=== PATIENT | male | born 1965 | race African-American/Black ===

== ENCOUNTER 2017-04-19 10:00 | Inpatient (IN) | payer OTHER ==
[~2017-04-19] VITALS: Ht 172.7 cm; Wt 59.0 kg
--- NOTE | ~2017-04-19 | PN ---
Unit #: [id number] #: [id number] Patient: SERVANDO SCHAFFER [id number] [facility] [address] [place] [address] [id number] I MR#: [id number] NAME: SERVANDO SCHAFFER ROOM: [facility] Age: 52 Sex: M Admission Date: 04/19/2017 : 1965 Attending Physician: Cleveland Currie M.D. Admitting Physician: Cleveland Currie M.D. Primary Care Physician: Primary Care Physician Selena CABA PROGRESS NOTES DATE 04/20/2017 DISCUSSION The patient complains of poor sleep. I will increase his melatonin to 6 mg at h.s. He is today expressing interest in possible initiation of Depo Abilify. I will ask for initiation of Aristada 441 mg monthly. Dictated by... Cleveland Currie M.D. CB/declan TD: 04/20/2017 15:21 JOB #: [id number] GER[facility] PROGRESS NOTES Page 1 of 1 X Cleveland Currie MD PROGRESS NOTE
--- NOTE | ~2017-04-19 | CO ---
Unit #: [id number] #: [id number] Patient: SERVANDO SCHAFFER [id number] [facility] [address] [place] [address] [id number] I MR#: [id number] NAME: SERVANDO SCHAFFER ROOM: [facility] Age: 52 Sex: M Admission Date: 04/19/2017 : 1965 Attending Physician: Cleveland Currie M.D. Consultation Date: 04/24/2017 CONSULTATION REPORT ORDERING PROVIDER Dr. Currie. REASON FOR FOLLOWUP The patient's lab results. SUBJECTIVE This morning Monika on called with patient lab results. Amylase and lipase were within normal limits; however, his AST and ALT were noted to be more than three times of normal value. No hepatitis panel had never been drawn. The patient is currently stable and vital signs are within normal limits. The patient is going to be discharged today per the patient. I do not see any reason to immediately send him out of the hospital. However, nursing was instructed to let him know to follow up with his PCP as soon as possible and if not discharged, they were instructed to let the on-call medical provider know, so that further workup could be done if necessary. Nursing was also instructed to call with any change in status of the patient. Dictated by... Dena Bocanegra/nita TD: 04/24/2017 08:02 JOB #: [id number] CONSULTATION REPORT Page 1 of 1 X ALIDA MONSALVE APRN X CONSULTATION REPORT
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
--- NOTE | ~2017-04-19 | PA ---
Unit #: [id number] #: [id number] Patient: SERVANDO SCHAFFER [id number] [facility] [address] [place] [address] [id number] I MR#: [id number] NAME: SERVANDO SCHAFFER ROOM: [facility] Age: 52 Sex: M Admission Date: 04/19/2017 : 1965 Date of Assessment: 04/19/2017 Attending Physician: Cleveland Currie M.D. Admitting Physician: Cleveland Currie M.D. Primary Care Physician: Primary Care Physician No PSYCHIATRIC ASSESSMENT IDENTIFYING INFORMATION The patient is a 52-year-old male brought to this facility by [employer] after he had attempted to jump from the eleventh floor window. CHIEF COMPLAINT "The voices is telling to jump." INFORMANT Patient, reliability is good. HISTORY OF PRESENT ILLNESS The patient is a 53-year-old male admitted after he had been brought to this facility by police. The patient had reportedly responded to command hallucinations telling him to jump from an 11-floor building in his apartment building. Police were summoned to the patient's home, and he was brought here. The patient reports the patient was last hospitalized at this facility in August of this year. He has apparently been off medications for some time per his report. He was last discharged from this facility in August of this year, but had apparently never filled the medications thereafter. For more complete history of present illness, please refer to previously dictated notes. PAST PSYCHIATRIC HISTORY Reviewed, no changes. PAST MEDICAL HISTORY Reviewed, no changes. MEDICATIONS 1. Lisinopril. 2. Abilify. 3. Melatonin. 4. Mirtazapine. 5. Carafate. 6. Gabapentin. 7. Zofran. 8. Hydrocodone. 9. BuSpar. ALLERGIES Penicillin, Dilaudid. Unit #: [id number] #: [id number] Patient: SERVANDO SCHAFFER FAMILY HISTORY Reviewed, no changes. SOCIAL HISTORY Reviewed, no changes. MENTAL STATUS EXAMINATION Examination at this time reveals the patient to be a thin, disheveled male appearing his stated age. He is in no apparent physical distress at the time of examination. He is awake, alert, and oriented in all spheres. His mood is dysphoric, his affect blunted. Speech is generally well-coherent. There are no gross deficits in memory or cognition noted. Intelligence is judged to be in the average range based on fund of knowledge. The patient is cooperative throughout the interview. He is currently endorsing positive suicidal ideation, command auditory hallucinations. His judgment and insight appear to be significantly impaired. ASSETS AND LIABILITIES The patient's assets are to be assessed. Liabilities: Poor compliance with treatment. Multiple health issues. DIAGNOSTIC IMPRESSION 1. Schizoaffective disorder. 2. Chronic obstructive pulmonary disease. 3. Diabetes mellitus. TREATMENT PLAN The patient remains hospitalized for safety and stabilization. We will restart all previously prescribed medications, and the importance of consistent compliance with these medications is discussed with the patient. The patient will participate in appropriate order of milieu activities. ESTIMATED LENGTH OF STAY 5 to 7 days. Dictated by... Cleveland Currie M.D. TIA/jose angel TD: 04/19/2017 14:02 JOB #: [id number] PSYCHIATRIC ASSESSMENT Page 1 of 1 X Cleveland Currie MD X PSYCHIATRIC ASSESSMENT
--- NOTE | ~2017-04-19 | PN ---
Unit #: [id number] #: [id number] Patient: SERVANDO SCHAFFER [id number] [facility] [address] [place] [address] [id number] I MR#: [id number] NAME: SERVANDO SCHAFFER ROOM: [facility] Age: 52 Sex: M Admission Date: 04/19/2017 : 1965 Attending Physician: Cleveland Currie M.D. Admitting Physician: Cleveland Currie M.D. Primary Care Physician: Primary Care Physician No [facility] PROGRESS NOTES DATE 04/23/2017 DISCUSSION The patient seems to be sustaining progress. We are probably looking at a.m. discharge and it is my hope that he will be able to receive his Aristada injection on that date. Dictated by... Cleveland Currie M.D. CB/khai TD: 04/24/2017 00:40 JOB #: [id number] [facility] PROGRESS NOTES Page 1 of 1 X Cleveland Currie MD X PROGRESS NOTE
--- NOTE | ~2017-04-19 | PN ---
Unit #: [id number] #: [id number] Patient: SERVANDO SCHAFFER [id number] [facility] [address] [place] [address] [id number] I MR#: [id number] NAME: SERVANDO SCHAFFER ROOM: [facility] Age: 52 Sex: M Admission Date: 04/19/2017 : 1965 Attending Physician: Cleveland Currie M.D. Admitting Physician: Cleveland Currie M.D. Primary Care Physician: Primary Care Physician Selena CABA PROGRESS NOTES DATE 04/21/2017 DISCUSSION The patient offers no new complaints today. We have learned that he will not be able to get his Aristada shot until the time of discharge, so we will continue oral Aristada. Otherwise, the patient complains of poor sleep but otherwise offers no new complaints. Dictated by... Cleveland Currie M.D. TIA/declan TD: 04/21/2017 15:43 JOB #: [id number] GER[facility] PROGRESS NOTES Page 1 of 1 X Cleveland Currie MD PROGRESS NOTE
--- NOTE | ~2017-04-19 | PN ---
Unit #: [id number] #: [id number] Patient: SERVANDO SCHAFFER [id number] [facility] [address] [place] [address] [id number] I MR#: [id number] NAME: SERVANDO SCHAFFER ROOM: [facility] Age: 52 Sex: M Admission Date: 04/19/2017 : 1965 Attending Physician: Cleveland Currie M.D. Admitting Physician: Cleveland Currie M.D. Primary Care Physician: Primary Care Physician Selena CABA PROGRESS NOTES DATE 04/22/2017 DISCUSSION The patient seems to be responding well to reinitiation of prescribed medications, as it will be our hope to provide the patient with a dose of Aristada Depot medication shortly prior to discharge, and given his history of poor compliance. Dictated by... Cleveland Currie M.D. CB/jose angel TD: 04/22/2017 12:57 JOB #: [id number] GERTRUDIS MUNOZ NOTES Page 1 of 1 X Cleveland Currie MD PROGRESS NOTE
--- NOTE | ~2017-04-19 | DS ---
Unit #: [id number] #: [id number] Patient: SERVANDO SCHAFFER [id number] [facility] [address] [place] [address] [id number] I MR#: [id number] NAME: SERVANDO SCHAFFER ROOM: [facility] Age: 52 Sex: M Admission Date: 04/19/2017 : 1965 Discharge Date: 04/24/2017 Attending Physician: Cleveland Currie M.D. Primary Care Physician: Primary Care Physician No DISCHARGE SUMMARY REASON FOR ADMISSION The patient is a 52-year-old male with a history of schizoaffective disorder admitted with recurrent auditory hallucinations and depressed mood. HOSPITAL COURSE The patient was admitted to the [address] [place] [address] Unit and placed on suicide precautions. He was restarted on previously prescribed medications including Zestril, Abilify, Remeron, Carafate, Neurontin, Zofran, Vicodin, BuSpar, NovoLog, and Levemir. Because of the patient's issues with compliance, a trial of Aristada 441 mg daily was initiated at the time of discharge. The patient was in brighter sprits and denied suicidal ideation when seen by this physician on 04/18/2017. He requested discharge, and it was so ordered. FINAL DIAGNOSES 1. Schizoaffective disorder. 2. Chronic pain. 3. Hypertension. 4. Gastroesophageal reflux disease. 5. Diabetes mellitus. DISPOSITION ON DISCHARGE The patient was discharged on the following medications: 1. Zestril 5 mg once daily for hypertension. 2. Aristada 441 mg monthly, last dose given 04/16/2017 for psychosis. 3. Remeron 30 mg at bedtime for depression. 4. Carafate 1 gram 3 times daily with meals for gastritis. 5. Neurontin 100 mg twice daily for anxiety. 6. Zofran 4 mg q. 4 hours p.r.n. nausea and vomiting. 7. Lortab 5/325, 1 tablet q. 6 hours p.r.n. pain. 8. BuSpar 7.5 mg daily for anxiety. 9. Melatonin 6 mg at h.s. p.r.n. insomnia. 10. Levemir 25 units at bedtime for diabetic management. 11. Sliding scale NovoLog for diabetic management. DIET AND ACTIVITY No dietary or physical restrictions placed on the patient at the time of discharge. FOLLOWUP Followup will take place through the auspices of [facility]. Unit #: [id number] #: [id number] Patient: SERVANDO SCHAFFER PROGNOSIS Considered fair. Dictated by... Cleveland Currie M.D. CB/jose angel TD: 04/26/2017 09:13 JOB #: [id number] DISCHARGE SUMMARY Page 1 of 1 X Cleveland Currie MD X DISCHARGE SUMMARY
--- NOTE | ~2017-04-19 | CO ---
Unit #: [id number] #: [id number] Patient: SERVANDO SCHAFFER [id number] [facility] [address] [place] [address] [id number] I MR#: [id number] NAME: SERVANDO SCHAFFER ROOM: [facility] Age: 52 Sex: M Admission Date: 04/19/2017 : 1965 Attending Physician: Cleveland Currie M.D. Primary Care Physician: Primary Care Physician No Consultation Date: 04/23/2017 CONSULTATION REPORT ORDERING PROVIDER Dr. Currie. REASON FOR CONSULT Abdominal pain. SUBJECTIVE The patient reports a history of pancreatitis and he was most recently hospitalized for this about a week ago. He reports that he has pain in his belly button that radiates around the right side to his back. He does not feel like the pain is getting any better. He denies any nausea, vomiting, or diarrhea. He denies anorexia. He reports that he has been drinking without issue. He denies any shortness of breath or fever. It should be noted that he does have a history of diabetes and a history of alcohol abuse. OBJECTIVE ABDOMEN: The patient has bowel sounds in all 4 quadrants. No jaundice was noted. He had minimal distention in his abdomen. LUNGS: Clear to auscultation bilaterally. VITAL SIGNS: Stable. Temperature is 98.1, heart rate is 90, respirations 20, blood pressure 122/75. ASSESSMENT Pancreatitis and abdominal pain, currently stable. PLAN Plan is to get some stat lab work including amylase, lipase, CMP and CBC. The patient was encouraged to drink fluids. He will be discharged tomorrow and he was encouraged to follow up with his primary care provider. Dictated by... Dena Bocanegra/nita TD: 04/23/2017 23:39 JOB #: [id number] Unit #: [id number] #: [id number] Patient: SERVANDO SCHAFFER CONSULTATION REPORT Page 1 of 1 X ALIDA MONSALVE APRN CONSULTATION REPORT
[2017-04-20 09:53] LABS: BASOPHIL% 0.6 % (0-2.5); EOSINOPHIL# 0.1 X10e3 (0-0.7); EOSINOPHIL% 1.3 % (0.0-7.0); HEMATOCRIT 39.8 % (38.0-50.0); HEMOGLOBIN 13.8 gm/dL (13.0-16.0); LYMPHOCYTE# 1.5 X10e3 (1.0-3.5); LYMPHOCYTE% 28.3 % (17.0-45.0); MEAN CELL VOLUME 94.1 FL (83-96); MEAN CORPUSCULAR HEMOGLOBIN 32.7 PG (28-34); MEAN CORPUSCULAR HGB CONC 34.8 g/dL (30-36); MEAN PLATELET VOLUME 8.7 FL (6.5-11.5); MONOCYTE# 0.5 X10e3 (0-1.0); MONOCYTE% 9.1 % (3.0-12.0); NEUTROPHIL# 3.2 X10e3 (1.5-7.1); NEUTROPHIL% 60.7 % (40-75); PLATELET COUNT 171 X10e3 (140-420); RED BLOOD COUNT 4.23 X10e (3.90-5.60); RED CELL DISTRIBUTION WIDTH 13.4 % (11.0-15.5); WHITE BLOOD COUNT 5.2 X10e3 (4.0-10.5)
[2017-04-20 10:08] LABS: DIFF IND NO
[2017-04-20 10:40] LABS: ALBUMIN SERUM 3.2 g/dL (3.5-5.0); BILIRUBIN,TOTAL 0.8 mg/dL (0.2-2.0); CALCIUM SERUM 9.1 mg/dL (8.4-10.2); CREATININE SERUM 0.5 mg/dL (0.6-1.4); GLOM FILT RATE Estimated 144.5 mL/min (>60); POTASSIUM 3.6 mmol/L (3.5-5.1); PROTEIN TOTAL SERUM 6.5 g/dL (6.0-8.3)
[2017-04-23 19:21] LABS: BASOPHIL% 0.6 % (0-2.5); EOSINOPHIL% 0.6 % (0.0-7.0); HEMATOCRIT 37.8 % (38.0-50.0); HEMOGLOBIN 12.9 gm/dL (13.0-16.0); LYMPHOCYTE# 1.8 X10e3 (1.0-3.5); LYMPHOCYTE% 33.5 % (17.0-45.0); MEAN CELL VOLUME 95.8 FL (83-96); MEAN CORPUSCULAR HEMOGLOBIN 32.7 PG (28-34); MEAN CORPUSCULAR HGB CONC 34.1 g/dL (30-36); MEAN PLATELET VOLUME 9.1 FL (6.5-11.5); MONOCYTE# 0.3 X10e3 (0-1.0); MONOCYTE% 5.7 % (3.0-12.0); NEUTROPHIL# 3.1 X10e3 (1.5-7.1); NEUTROPHIL% 59.6 % (40-75); PLATELET COUNT 143 X10e3 (140-420); RED BLOOD COUNT 3.94 X10e (3.90-5.60); RED CELL DISTRIBUTION WIDTH 13.2 % (11.0-15.5); WHITE BLOOD COUNT 5.2 X10e3 (4.0-10.5)
[2017-04-23 19:31] LABS: DIFF IND NO
[2017-04-23 19:42] LABS: ALBUMIN SERUM 3.4 g/dL (3.5-5.0); BILIRUBIN,TOTAL 0.6 mg/dL (0.2-2.0); CALCIUM SERUM 9.5 mg/dL (8.4-10.2); CREATININE SERUM 0.6 mg/dL (0.6-1.4); POTASSIUM 4.9 mmol/L (3.5-5.1); PROTEIN TOTAL SERUM 6.8 g/dL (6.0-8.3)
== END 2017-04-24 17:34 | disposition home or self-care (01) | DRG 885 ==
LOC: P1S 11:31
PROVIDERS: Specialist
DX: F25.9 Schizoaffective disorder, unspecified (principal); K85.90 Acute pancreatitis without necrosis or infection, unspecified; J44.9 Chronic obstructive pulmonary disease, unspecified; E11.9 Type 2 diabetes mellitus without complications; I10 Essential (primary) hypertension; Z86.73 Personal history of transient ischemic attack (TIA), and cerebral infarction without residual deficits
CPT/HCPCS: 80053; 82150; 82947; 83690; 85025